=== PATIENT | female | born 1950 | race Caucasian/White ===

== ENCOUNTER 2017-04-07 10:29 | Outpatient (CLI) | payer MEDICARE ==
--- NOTE | 2017-04-07 17:45 | DEXA Report ---
DEXA SCAN: 04/07/2017 CLINICAL INDICATION: Postmenopausal, history of osteoporosis. TECHNIQUE: Dual energy x-ray absorptiometry (DXA) was performed on a [employer] system. Regions measured are the AP spine, femoral neck, and, if needed, forearm. COMPARISON: 05/03/2016. In accordance with the International Society for Clinical Densitometry (ISCD) guidelines, data from previous exams may be reanalyzed using current recommendations and techniques. This is done to allow a more accurate basis for comparison with the current study. FINDINGS LUMBAR SPINE DATA: REGION BMD (g/cm/cm) T-SCORE Z-SCORE L1 1.040 -0.8 -0.3 L2 0.892 -2.6 -2.1 L3 0.744 -3.8 -3.3 L4 0.913 -2.4 -1.9 TOTAL 0.894 -2.4 -1.9 NOTE: All evaluable vertebrae are used for classification. HIP DATA: REGION BMD (g/cm/cm) T-SCORE Z-SCORE Neck 0.702 -2.4 -1.6 TOTAL 0.779 -1.8 -1.3 NOTE: The femoral neck or total proximal femur, whichever is lowest, is used for classification. DXA RESULTS SUMMARY: Spine SCAN DATE AGE BMD T-SCORE BMD CHANGE VS BASELINE BMD CHANGE VS PREVIOUS 04/07/2017 67 0.894 -- 0.998 1.0 05/03/2016 66 0.885 00 -- -- * Denotes significant change at the 95% confidence level. Denotes dissimilar scan types or analysis methods. DXA RESULTS SUMMARY: Total Hip SCAN DATE AGE BMD T-SCORE BMD CHANGE VS BASELINE BMD CHANGE VS PREVIOUS 04/07/2017 67 0.779 -- -0.042* -5.1* 05/03/2016 66 0[age]821 -- -- -- * Denotes significant change at the 95% confidence level. Denotes dissimilar scan types or analysis methods. IMPRESSION 1. THE WHO CLASSIFICATION BASED ON THE INTERNATIONAL REFERENCE STANDARD IS OSTEOPENIA. FRACTURE RISK IS INCREASED. 2. THERE HAS BEEN STATISTICALLY SIGNIFICANT INTERVAL DECREASE IN BONE MINERAL DENSITY OF THE LEFT HIP FROM 05/03/2016. NO STATISTICALLY SIGNIFICANT INTERVAL CHANGE IN BONE MINERAL DENSITY OF THE LUMBAR SPINE. RECOMMENDATION: Patients with diagnosis of osteoporosis or osteopenia should have regular bone mineral density assessment. For those eligible for Medicare, routine testing is allowed once every 2 years. Testing frequency can be increased for patients who have rapidly progressing disease or for those who are receiving medical therapy to restore bone mass. COMMENT: World Health Organization (WHO) definitions for osteoporosis and osteopenia: NORMAL BMD: T-score at -1.0 or higher, fracture risk is low. OSTEOPENIA BMD: T-score between -1.0 and -2.5, fracture risk is increased. OSTEOPOROSIS BMD: T-score at -2.5 or lower, fracture risk high. National Osteoporosis Foundation recommends: 1. Obtain adequate dietary calcium (at least 1200 mg per day) and vitamin D (400 -800 international units per day). 2. Participate, as appropriate, in regular weightbearing and muscle- strengthening exercise. 3. Avoid tobacco use and reduce alcohol and caffeine intake. 4. For more detailed information see the website at www.NOF.org. MTDD
== END 2017-04-07 10:30 | disposition home or self-care (01) ==
LOC: DI 10:29
PROVIDERS: ATTEND Internal Medicine Endocrinology, Diabetes & Metabolism
DX: M85.89 Other specified disorders of bone density and structure, multiple sites (principal)
CPT/HCPCS: 77080

== ENCOUNTER 2017-05-31 09:12 | Outpatient (CLI) | payer MEDICARE ==
[2017-05-31] MEDS ORDERED: ALBUTEROL NEB 2.5 MG/3 ML INH ONE (11:00)
== END 2017-05-31 09:13 | disposition home or self-care (01) ==
LOC: RT 09:12
PROVIDERS: ATTEND Family Medicine
DX: J45.909 Unspecified asthma, uncomplicated (principal)
CPT/HCPCS: 94060; 94729; J7613

== ENCOUNTER 2018-04-25 11:11 | Outpatient (CLI) | payer MEDICARE ==
--- NOTE | 2018-04-26 08:33 | Mammography Report ---
Reason: SCREENING MAMMO Procedure Date: 04/25/2018 Accession Number: [id number] / [id number] Procedure: CINDY - Screening Mammo w/Armen CPT Code: FULL RESULT: EXAM: Screening Mammo w/Armen DATE: 04/25/2018 11:46 AM CLINICAL HISTORY: Screening. Family history breast cancer grandmother in her 80s. No reported personal history of breast cancer. TECHNIQUE: Bilateral CC and MLO views were obtained. COMPARISON: 05/03/2016 and 02/19/2015 FINDINGS: The breasts demonstrate scattered fibroglandular densities bilaterally. Bilateral breasts: There are no suspicious masses, calcifications or areas of distortion. IMPRESSION: Negative examination RECOMMENDATION: Routine annual screening unless otherwise clinically indicated. BI-RADS CATEGORY 1: Negative STANDARD QUALIFYING STATEMENTS: 1. This examination was not reviewed with the aid of Computer-Aided Detection (CAD). 2. A negative or benign imaging report should not preclude biopsy if clinically suspicious findings are present. 3. Dense breasts may obscure an underlying neoplasm. 4. This examination was reviewed with the aid of 3D breast imaging (tomosynthesis).
== END 2018-04-25 11:12 | disposition home or self-care (01) ==
LOC: DI 11:11
DX: Z12.31 Encounter for screening mammogram for malignant neoplasm of breast (principal); Z80.3 Family history of malignant neoplasm of breast
CPT/HCPCS: 77063; 77067

== ENCOUNTER 2018-10-30 15:19 | Outpatient (CLI) | payer MEDICARE ==
--- NOTE | 2018-11-01 14:03 | DEXA Report ---
Reason: AGE RELATED OSTEOPOROSIS WITHOUT CURRENT PATHOLOGI Procedure Date: 10/30/2018 Accession Number: [id number] / [id number] Procedure: DEX - Dexa Spine and/or Hip CPT Code: FULL RESULT: EXAM: Dexa Spine and/or Hip DATE: 10/30/2018 4:17 PM CLINICAL HISTORY: AGE RELATED OSTEOPOROSIS WITHOUT CURRENT PATHOLOGI TECHNIQUE: Dual energy x-ray absorptiometry (DXA) was performed on a [employer] System. Regions measured are the AP Spine, femoral neck, and if needed forearm. COMPARISON: 04/07/2017. In accordance with the International Society for Clinical Densitometry (ISCD) guidelines, data from previous exams may be reanalyzed using current recommendations and techniques. This is done to allow a more accurate basis for comparison with the current study. FINDINGS: The data for the lumbar spine is as follows: BMD (g/cm/cm) T-SCORE Z-SCORE REGION L1 0.973 -1.3 -0.8 L2 0.892 -2.6 -2.1 L3 0.757 -3.7 -3.2 L4 0.823 -3.1 -2.7 TOTAL 0.858 -2.7 -2.2 NOTE: All evaluable vertebrae are used for classification The data for the hip is as follows: BMD (g/cm/cm) T-SCORE Z-SCORE REGION Neck 0.680 -2.6 -1.7 TOTAL 0.751 -2.0 -1.4 NOTE: The femoral neck or total proximal femur, whichever is lowest, is used for classification. DXA RESULTS SUMMARY: Spine SCAN DATE AGE BMD CHANGE VS CHANGE VS PREVIOUS PREVIOUS % 10[age]30/2018 [age] 0.867 -0.027 -3.0 04[age]07/2017 [age] 0.89 0.009 1.0 05/03/2016 [age] 0.885 * Denotes significant change at the 95% confidence level. Denotes dissimilar scan types or analysis methods. DXA RESULTS SUMMARY: Hip SCAN DATE AGE BMD CHANGE VS CHANGE VS PREVIOUS PREVIOUS % 10[age]30/2018 [age] 0.751 -0.028 -3.6 04/07/2017 [age] 0.779 -0.042* -5.1* 05/03/2016 [age] 0.821 * Denotes significant change at the 95% confidence level. Denotes dissimilar scan types or analysis methods. IMPRESSION: THE WHO CLASSIFICATION BASED ON THE INTERNATIONAL REFERENCE STANDARD IS OSTEOPOROSIS. THE FRACTURE RISK IS HIGH. RECOMMENDATION: Patients with diagnosis of osteoporosis or osteopenia should have regular bone mineral density assessment. For those eligible for Medicare, routine testing is allowed once every 2 years. Testing frequency can be increased for patients who have rapidly progressing disease or for those who are receiving medical therapy to restore bone mass. COMMENT: World Health Organization (WHO) definitions for osteoporosis and osteopenia: NORMAL BMD: T-score at -1.0 or higher, fracture risk is low OSTEOPENIA BMD: T-score between -1.0 and -2.5, fracture risk is increased. OSTEOPOROSIS BMD: T-score at -2.5 or lower, fracture risk is high. National Osteoporosis Foundation recommends: 1. Obtain adequate dietary calcium (at least 1200 mg per day) and vitamin D (400-800 international units per day). 2. Participate, as appropriate, in regular weightbearing and muscle-strengthening exercise. 3. Avoid tobacco use and reduce alcohol and caffeine intake. 4. For more detailed information see the website at www.NOF.org.
== END 2018-10-30 15:20 | disposition home or self-care (01) ==
LOC: DI 15:19
PROVIDERS: ATTEND Internal Medicine Endocrinology, Diabetes & Metabolism
DX: M81.0 Age-related osteoporosis without current pathological fracture (principal)
CPT/HCPCS: 77080

== ENCOUNTER 2019-03-06 08:43 | Outpatient (CLI) | payer MEDICARE ==
[2019-03-06] MEDS ORDERED: REGADENOSON 0.4 MG/5 ML SYRINGE IVP ONE (10:04)
[2019-03-06] MEDS ORDERED: AMINOPHYLLINE 250 MG/10 ML VIAL ONE (10:05)
[2019-03-06] MEDS: REGADENOSON 0.4 MG/5 ML SYRINGE IVP ONE (11:11)
--- NOTE | 2019-03-06 15:28 | CARDIAC PROCEDURE NOTE ---
DATE OF SERVICE: 03/06/2019 Physician: Ana Cristina Moore MD, [facility] INDICATIONS: Shortness of breath, hypertension, dyslipidemia CARDIAC RISK FACTORS: Postmenopausal status, over weight, family history of heart disease, hypertension. DESCRIPTION OF PROCEDURE: After signing informed consent, the patient underwent a Lexiscan pharmaceutical stress test with nuclear myocardial perfusion imaging. RESTING HEART RATE: 65. PEAK HEART RATE: 79. RESTING BLOOD PRESSURE: 136/76. PEAK BLOOD PRESSURE: 162/71. The patient underwent Lexiscan infusion per protocol. She developed very brief shortness of breath. Oxygen saturation was 93-94% on room air during this time. She developed no chest pain. RESTING EKG: Normal sinus rhythm, left atrial enlargement, right bundle branch block, ST and T-wave abnormalities in leads II, III, aVF, and V1 through V4, and T-wave flattening in leads V5 and V6. EKG AT PEAK: New ST depression and new T-wave inversions in V5 and V6, other abnormalities remained the same. SUMMARY 1. Abnormal resting EKG. 2. Ischemic changes do develop during pharmaceutical stress. 3. This patient's cardiac risk based on EKG criteria: High. 4. Nuclear images reported separately. cc: DO Cornelio Grant MD TD: 03/06/2019 15:10 MTDD
--- NOTE | 2019-03-08 09:16 | Nuclear Medicine Report ---
Reason: SOB, HTN, DYSLIPIDEMIA Procedure Date: 03/06/2019 Accession Number: [id number] / [id number] Procedure: NM - Myocardial Perfusion STR/RST CPT Code: Final Report FULL RESULT: EXAM: SINGLE-ISOTOPE PHARMACOLOGICAL STRESS TEST WITH REGADENOSON. SINGLE-ISOTOPE AND ONE-DAY REST/STRESS MYOCARDIAL PERFUSION SCANS WITH TOMOGRAPHIC IMAGING, QUANTITATIVE ANALYSIS, WALL MOTION ANALYSIS AND CALCULATION OF EJECTION FRACTION. EXAM DATE: 03/06/2019 04:02 PM. CLINICAL HISTORY: Shortness of breath, hypertension, dyslipidemia. COMPARISON: None available. TECHNIQUE: After the intravenous administration of 10.4 mCi of Tc-99m sestamibi, a rest myocardial perfusion scan was done with tomography. Motion correction was applied when appropriate. After an appropriate delay, pharmacological stress was performed with the infusion of 0.4 mg regadenoson per protocol. According to protocol, 43.1 mCi of Tc-99m sestamibi was injected for stress myocardial perfusion scan. Motion correction was applied when appropriate. Gated tomographic images were obtained for wall motion analysis and computation of left ventricular ejection fraction. FINDINGS: No fixed or reversible perfusion defects are evident. Summed stress score 1 Summed rest score 0 Summed difference score 1 Wall motion analysis demonstrates No focal wall motion abnormality. The left ventricular end-diastolic volume is 69 cc. The left ventricular end-systolic volume is 8 cc. The left ventricular ejection fraction is calculated to be 88%. IMPRESSION: 1. No scintigraphic findings to indicate myocardial ischemia. Negative for infarct. 2. Left ventricular ejection fraction of 88%. 3. Normal segmental and global wall motion. 4. Normal left ventricular cavity size, no change with stress. 5. Based on computer analysis, normal study with no ischemia. Please correlate findings with stress ECG tracings and procedure notes. RADIA
== END 2019-03-06 08:44 | disposition home or self-care (01) ==
LOC: DI 08:43
PROVIDERS: ATTEND Family Medicine
DX: R06.02 Shortness of breath (principal); R94.31 Abnormal electrocardiogram [ECG] [EKG]; I10 Essential (primary) hypertension; E78.5 Hyperlipidemia, unspecified
CPT/HCPCS: 78452; 93017; A9500; J2785

== ENCOUNTER 2019-07-03 08:00 | Outpatient (CLI) | payer MEDICARE ==
[2019-07-03 18:33] LABS: BASOPHILS # (AUTO) 0.1 10^3/uL (0.0-0.1); BASOPHILS % (AUTO) 0.7 %; EOSINOPHILS # (AUTO) 0.2 10^3/uL (0.0-0.7); EOSINOPHILS % (AUTO) 2.4 %; HGB - HEMOGLOBIN 15.4 g/dL (12.0-16.0); LYMPHOCYTES # (AUTO) 3.1 10^3/uL (1.5-3.5); LYMPHOCYTES % (AUTO) 43.2 %; MEAN CORPUSCULAR HEMOGLOBIN 28.5 pg (27.0-31.0); MEAN CORPUSCULAR HGB CONC 30.9 g/dL (32.0-36.0); MEAN CORPUSCULAR VOLUME 92.4 fL (81.0-99.0); MONOCYTES # (AUTO) 0.6 10^3/uL (0.0-1.0); MONOCYTES % (AUTO) 8.2 %; NEUTROPHILS # (AUTO) 3.3 10^3/uL (1.5-6.6); NEUTROPHILS % (AUTO) 45.2 %; PLT - PLATELET COUNT 202 10^3/uL (130-450); RED CELL DISTRIBUTION WIDTH 14.6 % (12.0-15.0); WHITE BLOOD COUNT 7.2 x10^3/uL (4.8-10.8)
[2019-07-03 19:06] LABS: ALBUMIN/GLOBULIN RATIO 1.1 (1.0-2.2); BILIRUBIN,TOTAL 1.3 mg/dL (0.2-1.0); CREATININE 0.7 mg/dL (0.4-1.0); TOTAL PROTEIN 7.5 g/dL (6.7-8.2)
== END 2019-07-03 23:59 | disposition home or self-care (01) ==
LOC: LAB.WCP 08:00
PROVIDERS: ATTEND Family Medicine
DX: K92.1 Melena (principal)
CPT/HCPCS: 36415; 80053; 85025

== ENCOUNTER 2019-07-04 19:18 | Outpatient (CLI) | payer MEDICARE ==
--- NOTE | 2019-07-04 22:09 | Ultrasound Report ---
Reason: ABNORMAL LFTS Procedure Date: 07/04/2019 Accession Number: [id number] / [id number] Procedure: US - Abdomen Complete CPT Code: Final Report FULL RESULT: EXAM: ABDOMEN ULTRASOUND EXAM DATE: 07/04/2019 08:20 PM. CLINICAL HISTORY: ABNORMAL LFTS. COMPARISON: None. TECHNIQUE: Real-time scanning was performed with static images obtained. FINDINGS: Liver: Diffuse increased echogenicity of the liver. No mass lesions identified. 18.6 cm. Main portal vein flow: Hepatopetal. Gallbladder: Surgically absent. Biliary System: Common bile duct measures 7 mm. No intrahepatic or extrahepatic ductal dilatation. Pancreas: Not well visualized. Kidneys: Right: 11.7 cm longitudinally. Echogenic focus within the right kidney likely representing a nonobstructing stone measuring 7 x 8 mm. Simple cyst in the mid kidney measuring 1 x 0.8 cm. Left: 11.4 cm longitudinally. Simple cyst in the lower pole of the left kidney measuring 1.2 x 1.1 cm. Spleen: 11.1 x 4.7 x 9.8 cm. Normal in size and echotexture. Aorta and Inferior Vena Cava: Proximal abdominal aorta measures 2.8 cm. Mid and distal abdominal aorta not well visualized. Other: There are possible two cystic lesions in the region of the distal aorta measuring 4.2 x 3.7 cm and 4.3 x 6 cm. These lesions are poorly defined due to large amount of bowel gas and are of unclear etiology. IMPRESSION: 1. No acute finding sonographically. 2. Diffuse increased echogenicity of the liver likely due to hepatic steatosis. 3. Surgically absent gallbladder. 4. Possible two cystic lesions in the region of the distal aorta measuring 4.2 x 3.7 cm and 4.3 x 6 cm. These lesions are poorly defined due to large amount of bowel gas and are of unclear etiology. Recommend further evaluation with a dedicated CT scan of the abdomen/pelvis. RADIA The call report notification system was initiated by Dr. Roberto Yousif at 10:05 PM on 07/04/2019. The above call report findings were discussed with Dr Lashaun Melgoza by Dr. Roberto Yousif at 10:08 PM on 07/04/2019.
== END 2019-07-04 19:19 | disposition home or self-care (01) ==
LOC: DI 19:18
PROVIDERS: ATTEND Family Medicine
DX: R94.5 Abnormal results of liver function studies (principal); Z90.49 Acquired absence of other specified parts of digestive tract
CPT/HCPCS: 76700

== ENCOUNTER 2019-07-05 09:54 | Outpatient (CLI) | payer MEDICARE ==
[2019-07-05] MEDS ORDERED: IOVERSOL 320 100 ML VIAL IVP ONE ×2 (10:02→11:38)
[2019-07-05] MEDS ORDERED: IOVERSOL 320 50 ML VIAL ONE (10:02)
[2019-07-05] MEDS ORDERED: IOVERSOL 320 50 ML VIAL PO ONE (11:38)
--- NOTE | 2019-07-05 14:09 | CT Report ---
Reason: ABD MASS Procedure Date: 07/05/2019 Accession Number: [id number] / [id number] Procedure: CT - Abdomen/Pelvis W CPT Code: Final Report FULL RESULT: EXAM: CT ABDOMEN AND PELVIS WITH IV CONTRAST EXAM DATE: 07/05/2019 11:29 AM. CLINICAL HISTORY: Abdominal mass. COMPARISONS: US abdomen complete 07/04/2019 7:40 PM. TECHNIQUE: Routine helical CT imaging was performed through the abdomen and pelvis. IV contrast: 90 mL Optiray 320. Enteric contrast: Yes. Reconstructions: Coronal and sagittal. In accordance with CT protocol optimization, one or more of the following dose reduction techniques were utilized for this exam: automated exposure control, adjustment of mA and/or KV based on patient size, or use of iterative reconstructive technique. FINDINGS: Lung Bases: Unremarkable. Liver: Mild diffuse decreased attenuation compatible with fatty infiltration. No focal liver lesion evident. Gallbladder/Bile Ducts: Prior cholecystectomy. No biliary ductal dilatation. Spleen: Normal. Pancreas: Normal. Adrenal Glands: Normal. Kidneys: Normal. No masses or hydronephrosis. Peritoneal Cavity/Bowel: Colonic diverticulosis without evidence for diverticulitis. Appendix not identified. No bulky abdominal or pelvic adenopathy. Pelvic Organs: Prior hysterectomy. Right ovary measures 3.2 x 2.0 x 3.3 cm, 11 cc and contains a 2.4 cm cyst that appears simple by CT. Complex cystic and solid bilobed left adnexal mass measuring up to 10 cm on series 3 image 64. The left anterior component measures 5.6 x 4.2 x 4.3 cm, 53 cc and the right lateral component of this lesion measures 5.8 x 4.7 x 4.9 cm, 70 cc; for overall volume of 123 cc. Vasculature: No aneurysms or other significant abnormality. 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 Lower lumbar spine degenerative changes with prominent facet hypertrophy and partial ankylosis. Prior lumbar laminectomy. Other: None. IMPRESSION: 1. Prior hysterectomy. 2. Abnormal 10 cm complex bilobed left adnexal cystic and solid mass. Estimated lesion volume is 123 cc. Findings are worrisome for ovarian neoplasm. 3. A 2.4 cm right ovarian cyst with simple appearance by CT. 4. Colonic diverticulosis. 5. Fatty liver. RADIA The call report notification system was initiated by Dr. Cornelio Au at 02:00 PM on 07/05/2019. The above call report findings were discussed with Dr. Melgoza by Dr. Cornelio Au at 02:05 PM on 07/05/2019.
== END 2019-07-05 09:55 | disposition home or self-care (01) ==
LOC: DI 09:54
PROVIDERS: ATTEND Family Medicine
DX: N94.89 Other specified conditions associated with female genital organs and menstrual cycle (principal); N83.201 Unspecified ovarian cyst, right side; K76.0 Fatty (change of) liver, not elsewhere classified; Z90.710 Acquired absence of both cervix and uterus
CPT/HCPCS: 74177; Q9967

== ENCOUNTER 2019-07-10 12:57 | Outpatient (CLI) | payer MEDICARE ==
[2019-07-10 19:22] LABS: ALBUMIN 3.9 g/dL (3.2-5.5); ALBUMIN/GLOBULIN RATIO 1.1 (1.0-2.2); BILIRUBIN,TOTAL 0.7 mg/dL (0.2-1.0); CALCIUM 10.1 mg/dL (8.5-10.3); CREATININE 0.7 mg/dL (0.4-1.0); TOTAL PROTEIN 7.4 g/dL (6.7-8.2)
[2019-07-11 12:15] LABS: HEPATITIS B SURFACE ANTIGEN NON-REACTIVE (NON-REACTIVE); HEPATITIS C ANTIBODY NON-REACTIVE (NON-REACTIVE)
[2019-07-13 00:45] LABS: LIVER KIDNEY MICROSOME AB <20.0 U
== END 2019-07-10 23:59 | disposition home or self-care (01) ==
LOC: LAB.WCP 12:57
PROVIDERS: ATTEND Family Medicine
DX: R94.5 Abnormal results of liver function studies (principal); N83.9 Noninflammatory disorder of ovary, fallopian tube and broad ligament, unspecified
CPT/HCPCS: 36415; 80053; 82105; 82390; 83540; 84466; 86304; 86317; 86376; 86704; 86709; 86803; 87340

== ENCOUNTER 2019-10-23 08:00 | Outpatient (CLI) | payer MEDICARE ==
[2019-10-23 18:58] LABS: ALBUMIN 4.1 g/dL (3.2-5.5); ALBUMIN/GLOBULIN RATIO 1.8 (1.0-2.2); BILIRUBIN,TOTAL 0.8 mg/dL (0.2-1.0); CALCIUM 9.9 mg/dL (8.5-10.3); CREATININE 0.6 mg/dL (0.4-1.0); TOTAL PROTEIN 6.4 g/dL (6.7-8.2)
[2019-10-23 19:01] LABS: BASOPHILS # (AUTO) 0.1 10^3/uL (0.0-0.1); BASOPHILS % (AUTO) 0.8 %; EOSINOPHILS # (AUTO) 0.2 10^3/uL (0.0-0.7); EOSINOPHILS % (AUTO) 2.1 %; HGB - HEMOGLOBIN 15.6 g/dL (12.0-16.0); LYMPHOCYTES # (AUTO) 4.2 10^3/uL (1.5-3.5); LYMPHOCYTES % (AUTO) 44.8 %; MEAN CORPUSCULAR HEMOGLOBIN 30.9 pg (27.0-31.0); MEAN CORPUSCULAR HGB CONC 33.3 g/dL (32.0-36.0); MEAN CORPUSCULAR VOLUME 92.9 fL (81.0-99.0); MEAN PLATELET VOLUME 10.8 fL (7.9-10.8); MONOCYTES # (AUTO) 0.8 10^3/uL (0.0-1.0); MONOCYTES % (AUTO) 8.9 %; NEUTROPHILS # (AUTO) 4.1 10^3/uL (1.5-6.6); NEUTROPHILS % (AUTO) 43.1 %; PLT - PLATELET COUNT 261 10^3/uL (130-450); RED BLOOD COUNT 5.05 10^6/uL (4.20-5.40); RED CELL DISTRIBUTION WIDTH 13.4 % (12.0-15.0); WHITE BLOOD COUNT 9.5 x10^3/uL (4.8-10.8)
== END 2019-10-23 23:59 | disposition home or self-care (01) ==
LOC: LAB.WCP 08:00
PROVIDERS: ATTEND Family Medicine
DX: R94.5 Abnormal results of liver function studies (principal)
CPT/HCPCS: 36415; 80053; 85025

== ENCOUNTER 2020-01-02 07:00 | Outpatient (CLI) | payer MEDICARE ==
[2020-01-02 18:04] LABS: BASOPHILS # (AUTO) 0.1 10^3/uL (0.0-0.1); BASOPHILS % (AUTO) 0.8 %; EOSINOPHILS # (AUTO) 0.2 10^3/uL (0.0-0.7); EOSINOPHILS % (AUTO) 2.2 %; HGB - HEMOGLOBIN 14.4 g/dL (12.0-16.0); LYMPHOCYTES # (AUTO) 4.3 10^3/uL (1.5-3.5); LYMPHOCYTES % (AUTO) 46.4 %; MEAN CORPUSCULAR HEMOGLOBIN 29.5 pg (27.0-31.0); MEAN CORPUSCULAR HGB CONC 31.5 g/dL (32.0-36.0); MEAN CORPUSCULAR VOLUME 93.6 fL (81.0-99.0); MEAN PLATELET VOLUME 10.7 fL (7.9-10.8); MONOCYTES # (AUTO) 0.5 10^3/uL (0.0-1.0); MONOCYTES % (AUTO) 4.9 %; NEUTROPHILS # (AUTO) 4.2 10^3/uL (1.5-6.6); NEUTROPHILS % (AUTO) 45.2 %; PLT - PLATELET COUNT 346 10^3/uL (130-450); RED BLOOD COUNT 4.88 10^6/uL (4.20-5.40); RED CELL DISTRIBUTION WIDTH 13.9 % (12.0-15.0); WHITE BLOOD COUNT 9.3 x10^3/uL (4.8-10.8)
[2020-01-02 18:22] LABS: ALBUMIN 3.6 g/dL (3.2-5.5); CALCIUM 10.3 mg/dL (8.5-10.3); CREATININE 0.8 mg/dL (0.4-1.0); TOTAL PROTEIN 7.2 g/dL (6.7-8.2)
== END 2020-01-02 23:59 | disposition home or self-care (01) ==
LOC: LAB.WCP 07:00
PROVIDERS: ATTEND Physician Assistant Medical
DX: K80.50 Calculus of bile duct without cholangitis or cholecystitis without obstruction (principal)
CPT/HCPCS: 36415; 80053; 85025

== ENCOUNTER 2020-04-07 15:18 | Outpatient (CLI) | payer MEDICARE ==
--- NOTE | 2020-04-07 17:04 | DEXA Report ---
PROCEDURE: Dexa Spine and/or Hip INDICATIONS: BONE DISORDER TECHNIQUE: Dual energy x-ray absorptiometry (DXA) was performed on a [id number] System. Regions measur ed are the AP Spine, femoral neck, and if needed forearm. COMPARISON: None. FINDINGS: Lumbar Spine: Bone Mineral Density 0.866 g/cm/cm,T score -2.6 Left Hip: Bone Mineral Density 0.728 g/cm/cm,T score -1.5 Left Femoral Neck: Bone Mineral Density 0.660 g/cm/cm, T score -1.7 (T score greater or equal to -1.0: NORMAL) (T score from -1.1 to -2.4: OSTEOPENIA) (T score less than or equal to -2.5 to: OSTEOPOROSIS) Impression: 1. Osteoporosis of the lumbar spine. 2. Osteopenia of the left hip. Patients with diagnosis of osteoporosis or osteopenia should have regular bone mineral density assess ment. For those eligible for Medicare, routine testing is allowed once every 2 years. Testing frequ ency can be increased for patients who have rapidly progressing disease or for those who are receivin g medical therapy to restore bone mass. Reviewed by: Mercedes Sun MD on 04/07/2020 5:02 PM PST Approved by: Mercedes Sun MD on 04/07/2020 5:02 PM PST Station ID: [id number]
== END 2020-04-07 15:19 | disposition home or self-care (01) ==
LOC: DI 15:18
PROVIDERS: ATTEND Family Medicine
DX: M81.0 Age-related osteoporosis without current pathological fracture (principal)

== ENCOUNTER 2020-04-08 10:20 | Outpatient (CLI) | payer MEDICARE ==
--- NOTE | 2020-04-09 07:43 | Mammography Report ---
BILATERAL DIGITAL SCREENING MAMMOGRAM 3D/2D: 04/08/2020 CLINICAL: Routine screening. Comparison is made to exams dated: 04/25/2018 mammogram, 05/03/2016 mammogram, 02/19/2015 mammogram - [facility], 08/20/2012 mammogram, and 02/10/2010 mammogram - [facility]. There are scattered fibroglandular elements in both breasts. No significant masses, calcifications, or other findings are seen in either breast. There has been no significant interval change. IMPRESSION: NEGATIVE There is no mammographic evidence of malignancy. A 1 year screening mammogram is recommended. This exam was interpreted at Station ID: [id number]. NOTE: For mammograms, a report in lay terms will be sent to the patient. Approximately 15% of breast malignancies will not be visualized mammographically. In the management of a palpable breast mass, a negative mammogram must not discourage biopsy of a clinically suspicious lesion. Electronically Signed By: Ryan chaves/kong:04/08/2020 11:29:52 ACR BI-RADS Category 1: Negative 3341F PARENCHYMAL PATTERN: (A) - The breast(s) demonstrate(s) scattered fibroglandular densities. BI-RADS CATEGORY: (1) - 1 RECOMMENDATION: (ANNUAL) - Recommend routine annual screening mammography. [id number] 1 year screening LATERALITY: (B)
== END 2020-04-08 10:21 | disposition home or self-care (01) ==
LOC: DI.N 10:20
DX: Z12.31 Encounter for screening mammogram for malignant neoplasm of breast (principal)

== ENCOUNTER 2020-08-07 08:00 | Outpatient (CLI) | payer MEDICARE ==
[2020-08-07 12:52] LABS: ESTIMATED AVERAGE GLUCOSE 114 mg/dL (70-100); HEMOGLOBIN A1c% 5.6 % (4.27-6.07)
[2020-08-07 13:23] LABS: BASOPHILS # (AUTO) 0.1 10^3/uL (0.0-0.1); BASOPHILS % (AUTO) 0.9 %; EOSINOPHILS # (AUTO) 0.2 10^3/uL (0.0-0.7); HCT - HEMATOCRIT 48.2 % (37.0-47.0); HGB - HEMOGLOBIN 15.9 g/dL (12.0-16.0); LYMPHOCYTES # (AUTO) 4.4 10^3/uL (1.5-3.5); LYMPHOCYTES % (AUTO) 49.3 %; MEAN CORPUSCULAR HEMOGLOBIN 29.6 pg (27.0-31.0); MEAN CORPUSCULAR VOLUME 89.6 fL (81.0-99.0); MEAN PLATELET VOLUME 11.6 fL (7.9-10.8); MONOCYTES # (AUTO) 0.7 10^3/uL (0.0-1.0); MONOCYTES % (AUTO) 7.3 %; NEUTROPHILS # (AUTO) 3.6 10^3/uL (1.5-6.6); NEUTROPHILS % (AUTO) 40.3 %; PLT - PLATELET COUNT 186 10^3/uL (130-450); RED BLOOD COUNT 5.38 10^6/uL (4.20-5.40); RED CELL DISTRIBUTION WIDTH 13.4 % (12.0-15.0); WHITE BLOOD COUNT 8.9 x10^3/uL (4.8-10.8)
[2020-08-07 13:49] LABS: ALBUMIN/GLOBULIN RATIO 1.3 (1.0-2.2); ALKALINE PHOSPHATASE 74 IU/L (42-121); ALT ALANINE AMINOTRANSFERASE 27 IU/L (10-60); AST ASPARTATE AMINOTRANSFERASE 23 IU/L (10-42); BILIRUBIN,TOTAL 1.2 mg/dL (0.2-1.0); BUN - BLOOD UREA NITROGEN 22 mg/dL (6-20); CALCIUM 9.9 mg/dL (8.5-10.3); CARBON DIOXIDE - CO2 24 mmol/L (21-32); CHLORIDE 108 mmol/L (101-111); CHOL/HDL RATIO 3.6 (<4.4); CHOLESTEROL 153 mg/dL; CREATININE 0.7 mg/dL (0.4-1.0); GFR - MDRD 82 (>89); GLUCOSE 118 mg/dL (70-100); HDL CHOLESTEROL 43 mg/dL; LDL CHOLESTEROL,CALCULATED 83 mg/dL; LDL/HDL RATIO 1.9 (<4.4); POTASSIUM 4.3 mmol/L (3.5-5.0); SODIUM 141 mmol/L (135-145); TRIGLYCERIDES 136 mg/dL; VLDL CHOLESTEROL 27 mg/dL
[2020-08-07 13:54] LABS: THYROID STIMULATING HORMONE 1.68 uIU/mL (0.34-5.60)
== END 2020-08-07 23:59 | disposition home or self-care (01) ==
LOC: LAB.WCP 08:00
PROVIDERS: ATTEND Family Medicine
DX: I10 Essential (primary) hypertension (principal); E78.5 Hyperlipidemia, unspecified; E66.01 Morbid (severe) obesity due to excess calories
CPT/HCPCS: 36415; 80053; 80061; 83036; 83721; 84443; 85025

== ENCOUNTER 2020-09-07 08:00 | Outpatient (CLI) | payer MEDICARE ==
--- NOTE | 2020-09-07 12:44 | XRAY Report ---
PROCEDURE: Shoulder 2 View RT INDICATIONS: STRAIN OF MUSCLE, FASCIA AND TENDON OF R SHOULDER TECHNIQUE: 2 views of the shoulder were acquired. COMPARISON: None. FINDINGS: Bones: No fractures or dislocations. No suspicious bony lesions. Visualized ribs appear intact. Soft tissues: No suspicious soft tissue calcifications but there is a set of 2 adjacent calcificatio ns at the lateral border of the humeral head articular surface, consistent with calcific bursitis or tendinitis. Mild to moderate AC joint osteoarthritis.. IMPRESSION: Osteoarthritic change and calcific bursitis/tendinitis noted at the lateral humeral head margin. Reviewed by: Ambrose Teixeira MD on 09/07/2020 12:43 PM PDT Approved by: Ambrose Teixeira MD on 09/07/2020 12:43 PM PDT Station ID: [id number]
== END 2020-09-07 23:59 | disposition home or self-care (01) ==
LOC: DI.N 08:00
PROVIDERS: ATTEND Nurse Practitioner
DX: M75.31 Calcific tendinitis of right shoulder (principal); M75.51 Bursitis of right shoulder

== ENCOUNTER 2020-10-02 08:48 | Day surgery (SDC) | payer MEDICARE ==
[2020-10-02] MEDS ORDERED: LACTATED RINGERS 1,000 ML IV ONE ×2 (08:54→10:39)
--- NOTE | 2020-10-02 09:27 | HISTORY & PHYSICAL EXAMINATION ---
Chief Complaint - Chief Complaint Chief Complaint: history colon polyp History of Present Illness - History Obtained From Records Reviewed: yes History obtained from: pt Exam Limitations: none - History of Present Illness HPI Comment/Other: She had a colonoscopy 5 years ago and an adenoma was removed History - Past Medical History Cardiovascular: reports: Hypertension Respiratory: reports: Asthma Endocrine/Autoimmune: reports: None GI: reports: GERD, Colon polyps, Other : reports: Incontinence HEENT: reports: Chronic vision loss, Other Psych: reports: Depression, Anxiety, Panic attacks Musculoskeletal: reports: Osteoarthritis Derm: reports: None MRSA Hx?: No - Past Surgical History General: reports: Cholecystectomy, Colonoscopy, Other Ortho: reports: Arthroscopic surgery, Spine surgery /SPEECH PATHOLOGIST: reports: Hysterectomy Meds/Allgy - Home Medications Home Medications: Ambulatory Orders Medication Instructions Recorded Confirmed Ascorbic Acid/Bioflavonoids [Vit 1 each PO DAILY 05/13/15 10/02/20 C-Bioflavonoids Tab SA] Calcium Carbonate [Calcium] 333 mg PO DAILY 05/13/15 10/02/20 Multivit-Min/FA/Lycopen/Lutein 1 cap PO DAILY 05/13/15 10/02/20 [Centrum Silver Tablet] Potassium 99 mg PO DAILY 05/13/15 10/02/20 - Allergies Allergies/Adverse Reactions: Allergies Allergy/AdvReac Type Severity Reaction Status Date / Time No Known Drug Allergies Allergy Verified 05/13/15 14:33 Review of Systems - Other Findings Other Findings: 10 pt ros as above otherwise unremarkable Exam - Vital Signs Reviewed Vital Signs: Yes Vital Signs: Vital Signs x48h Temp Pulse Resp BP Pulse Ox 10/02/20 08:55 36.2 C L 64 14 150/63 H 96 - Physical Exam General Appearance: positive: Alert Eyes Bilateral: positive: PERRL, EOMI ENT: positive: No signs of dehydration Neck: positive: No JVD Respiratory: positive: Breath sounds nml Cardiovascular: positive: Regular rate & rhythm Abdomen: positive: Non-tender, No distention Neurologic/Psychiatric: positive: Oriented x3 Conclusion/Plan - Problem List (1) History of adenomatous polyp of colon Conclusion/Plan: plan colonoscopy. parq held and consent obtained
[2020-10-02] MEDS ORDERED: MIDAZOLAM 2 MG/2 ML VIAL ONE ×4 (09:28→10:10)
[2020-10-02] MEDS ORDERED: fentaNYL 250 MCG/5 ML VIAL ONE (09:28)
[2020-10-02 11:00] VITALS: BP 141/80
== END 2020-10-02 08:49 | disposition home or self-care (01) ==
LOC: SDS 08:48
PROVIDERS: ATTEND Surgery
DX: Z12.11 Encounter for screening for malignant neoplasm of colon (principal); K57.30 Diverticulosis of large intestine without perforation or abscess without bleeding; Z86.010 Personal history of colon polyps
CPT/HCPCS: G0105; J3010; J7120

== ENCOUNTER 2020-12-29 11:23 | Outpatient (CLI) | payer MEDICARE ==
--- NOTE | 2020-12-29 16:27 | XRAY Report ---
PROCEDURE: Knee 3 View RT INDICATIONS: R KNEE PX TECHNIQUE: 3 views of the right knee(s) were acquired. COMPARISON: None. FINDINGS: Bones: No fractures or dislocations. No suspicious bony lesions. Lateral patellar subluxation is p resent. There is moderate to severe medial, mild to moderate lateral and patellofemoral compartment n arrowing. No erosions. Soft tissues: No joint effusion. No suspicious soft tissue calcifications. IMPRESSION: Tricompartmental arthritic change most severe medially. Reviewed by: Angelica Jean Baptiste MD on 12/29/2020 4:26 PM PDT Approved by: Angelica Jean Baptiste MD on 12/29/2020 4:26 PM PDT Station ID: [id number]
== END 2020-12-29 23:59 | disposition home or self-care (01) ==
LOC: DI.N 11:23
PROVIDERS: ATTEND Family Medicine
DX: M17.11 Unilateral primary osteoarthritis, right knee (principal)

== ENCOUNTER 2021-06-02 10:43 | Outpatient (CLI) | payer MEDICARE ==
--- NOTE | 2021-06-03 06:32 | Mammography Report ---
BILATERAL DIGITAL SCREENING MAMMOGRAM 3D/2D: 06/02/2021 CLINICAL: Routine screening. Comparison is made to exams dated: 04/08/2020 mammogram, 04/25/2018 mammogram, 05/03/2016 mammogram, 02/19/2015 mammogram - [facility], 08/20/2012 mammogram, and 02/10/2010 mammogram - [facility]. There are scattered fibroglandular elements in both breasts. No significant masses, calcifications, or other findings are seen in either breast. There has been no significant interval change. IMPRESSION: NEGATIVE There is no mammographic evidence of malignancy. A 1 year screening mammogram is recommended. This exam was interpreted at Station ID: [id number]. NOTE: For mammograms, a report in lay terms will be sent to the patient. Approximately 15% of breast malignancies will not be visualized mammographically. In the management of a palpable breast mass, a negative mammogram must not discourage biopsy of a clinically suspicious lesion. Electronically Signed By: Ryan Garcia M.D. ddp/penrad:06/02/2021 12:12:03 ACR BI-RADS Category 1: Negative 3341F PARENCHYMAL PATTERN: (A) - The breast(s) demonstrate(s) scattered fibroglandular densities. BI-RADS CATEGORY: (1) - 1 RECOMMENDATION: (ANNUAL) - Recommend routine annual screening mammography. [id number] 1 year screening LATERALITY: (B)
== END 2021-06-02 10:44 | disposition home or self-care (01) ==
LOC: DI.N 10:43
DX: Z12.31 Encounter for screening mammogram for malignant neoplasm of breast (principal)

== ENCOUNTER 2021-07-07 10:33 | Outpatient (CLI) | payer MEDICARE ==
[2021-07-07 18:04] LABS: BASOPHILS # (AUTO) 0.1 10^3/uL (0.0-0.1); BASOPHILS % (AUTO) 0.7 %; EOSINOPHILS # (AUTO) 0.2 10^3/uL (0.0-0.7); EOSINOPHILS % (AUTO) 1.6 %; HCT - HEMATOCRIT 48.3 % (37.0-47.0); LYMPHOCYTES % (AUTO) 41.2 %; MEAN CORPUSCULAR HEMOGLOBIN 30.2 pg (27.0-31.0); MEAN CORPUSCULAR HGB CONC 33.1 g/dL (32.0-36.0); MEAN CORPUSCULAR VOLUME 91.3 fL (81.0-99.0); MEAN PLATELET VOLUME 11.9 fL (7.9-10.8); MONOCYTES # (AUTO) 0.6 10^3/uL (0.0-1.0); MONOCYTES % (AUTO) 6.6 %; NEUTROPHILS # (AUTO) 4.8 10^3/uL (1.5-6.6); NEUTROPHILS % (AUTO) 49.6 %; PLT - PLATELET COUNT 197 10^3/uL (130-450); RED BLOOD COUNT 5.29 10^6/uL (4.20-5.40); RED CELL DISTRIBUTION WIDTH 13.6 % (12.0-15.0); WHITE BLOOD COUNT 9.7 x10^3/uL (4.8-10.8)
[2021-07-07 18:24] LABS: ALBUMIN 4.3 g/dL (3.2-5.5); ALBUMIN/GLOBULIN RATIO 1.4 (1.0-2.2); ALKALINE PHOSPHATASE 63 IU/L (42-121); ALT ALANINE AMINOTRANSFERASE 27 IU/L (10-60); AST ASPARTATE AMINOTRANSFERASE 22 IU/L (10-42); BILIRUBIN,TOTAL 0.8 mg/dL (0.2-1.0); BUN - BLOOD UREA NITROGEN 25 mg/dL (6-20); CALCIUM 10.1 mg/dL (8.5-10.3); CARBON DIOXIDE - CO2 27 mmol/L (21-32); CHLORIDE 105 mmol/L (101-111); CHOL/HDL RATIO 3.4 (<4.4); CHOLESTEROL 154 mg/dL; CREATININE 0.8 mg/dL (0.4-1.0); GFR - MDRD 71 (>89); GLUCOSE 116 mg/dL (70-100); HDL CHOLESTEROL 45 mg/dL; LDL CHOLESTEROL,CALCULATED 91 mg/dL; POTASSIUM 4.9 mmol/L (3.5-5.0); SODIUM 141 mmol/L (135-145); TOTAL PROTEIN 7.3 g/dL (6.7-8.2); TRIGLYCERIDES 92 mg/dL; VLDL CHOLESTEROL 18 mg/dL
[2021-07-07 20:58] LABS: ESTIMATED AVERAGE GLUCOSE 117 mg/dL (70-100); HEMOGLOBIN A1c% 5.7 % (4.27-6.07)
== END 2021-07-07 10:34 | disposition home or self-care (01) ==
LOC: LAB.N 10:33
PROVIDERS: ATTEND Family Medicine
DX: E78.5 Hyperlipidemia, unspecified (principal); R73.01 Impaired fasting glucose; I10 Essential (primary) hypertension
CPT/HCPCS: 36415; 80053; 80061; 83036; 83721; 85025

== ENCOUNTER 2021-09-27 11:51 | Outpatient (CLI) | payer MEDICARE ==
--- NOTE | 2021-09-27 12:24 | XRAY Report ---
PROCEDURE: Knee 3 View LT INDICATIONS: L KNEE PX TECHNIQUE: 3 views of the left knee(s) were acquired. COMPARISON: None. FINDINGS: Bones: No fractures or dislocations. No suspicious bony lesions. Mild osteophytic degenerative rubin ges noted in all 3 compartments of the left knee. Soft tissues: No joint effusion. No suspicious soft tissue calcifications. IMPRESSION: Mild left knee tricompartmental osteoarthritis. Reviewed by: Rosa Bullard MD, PhD on 09/27/2021 12:23 PM PDT Approved by: Rosa Bullard MD, PhD on 09/27/2021 12:23 PM PDT Station ID: [id number]
== END 2021-09-27 11:52 | disposition home or self-care (01) ==
LOC: LAB.N 11:51 → DI.N 11:52
PROVIDERS: ATTEND Physician Assistant
DX: M17.12 Unilateral primary osteoarthritis, left knee (principal)

== ENCOUNTER 2021-11-22 08:00 | Outpatient (CLI) | payer MEDICARE ==
--- NOTE | 2021-11-22 15:45 | XRAY Report ---
PROCEDURE: Knee 4 View RT INDICATIONS: RIGHT KNEE PAIN POST FALL THIS WEEKEND TECHNIQUE: 4 views of the right knee and one view of the left were acquired. COMPARISON: Right knee radiographs 10/21/2021. FINDINGS: Bones: No acute fractures or dislocations. No suspicious bony lesions. There is moderate to severe joint space narrowing at the right medial femorotibial compartment. The lateral and anterior compart ment joint spaces are maintained. Moderate narrowing of the left medial femorotibial compartment is a lso seen. Soft tissues: Small joint effusion. No suspicious soft tissue calcifications. Nonspecific soft tiss ue edema is seen surrounding the knee IMPRESSION: 1.No acute osseous abnormality. If there is clinical concern or persistent symptoms, additional imagi ng such as repeat radiographs or advanced imaging (e.g. CT, MRI) may be helpful for further evaluatio n. 2.Moderate to severe right medial femorotibial compartment osteoarthrosis. Reviewed by: Boris Toney MD on 11/22/2021 3:43 PM PDT Approved by: Boris Toney MD on 11/22/2021 3:43 PM PDT Station ID: [id number]
== END 2021-11-22 23:59 | disposition home or self-care (01) ==
LOC: DI.WOS 08:00
PROVIDERS: ATTEND Physician Assistant
DX: M17.11 Unilateral primary osteoarthritis, right knee (principal)

== ENCOUNTER 2021-12-02 14:15 | Outpatient (CLI) | payer MEDICARE ==
--- NOTE | 2021-12-02 15:09 | DEXA Report ---
PROCEDURE: Dexa Spine and/or Hip INDICATIONS: OSTEOPOROSIS TECHNIQUE: Dual energy x-ray absorptiometry (DXA) was performed on a [employer] System. Regions measur ed are the AP Spine, femoral neck, and if needed forearm. COMPARISON: None. FINDINGS: Lumbar Spine: Bone Mineral Density 0.83 g/cm/cm,T score -2.9, osteoporosis Left Hip: Bone Mineral Density 0.8 g/cm/cm,T score -1.9, osteopenia. Impression: 1. Lumbar spine osteoporosis. 2. Left hip osteopenia. Patients with diagnosis of osteoporosis or osteopenia should have regular bone mineral density assess ment. For those eligible for Medicare, routine testing is allowed once every 2 years. Testing frequ ency can be increased for patients who have rapidly progressing disease or for those who are receivin g medical therapy to restore bone mass. Reviewed by: Leonarda Ontiveros MD on 12/02/2021 3:07 PM PDT Approved by: Leonarda Ontiveros MD on 12/02/2021 3:07 PM PDT Station ID: [id number]
== END 2021-12-02 14:16 | disposition home or self-care (01) ==
LOC: DI 14:15
PROVIDERS: ATTEND Physician Assistant
DX: M81.0 Age-related osteoporosis without current pathological fracture (principal)

== ENCOUNTER 2022-01-28 12:57 | Outpatient (CLI) | payer MEDICARE ==
--- NOTE | 2022-01-28 14:48 | XRAY Report ---
PROCEDURE: Hand 3 View BILAT INDICATIONS: BILATERAL HAND PAIN TECHNIQUE: 3 views of the hand(s) acquired. COMPARISON: None FINDINGS: Bones: Distal interphalangeal joint space narrowing noted involving the second through fifth DIP join ts bilaterally with small marginal osteophytes present without erosions. First carpometacarpal joint space narrowing with subchondral sclerosis is noted also bilaterally. Normal bone mineralization. Soft tissues: No suspicious soft tissue calcifications. IMPRESSION: 1. Bilateral polyarticular osteoarthritis Reviewed by: Regino Seals MD on 01/28/2022 1:47 PM AKDT Approved by: Regino Seals MD on 01/28/2022 1:47 PM AKDT Station ID: [id number]
== END 2022-01-28 12:58 | disposition home or self-care (01) ==
LOC: DI 12:57
PROVIDERS: ATTEND Internal Medicine
DX: M19.042 Primary osteoarthritis, left hand (principal); M19.041 Primary osteoarthritis, right hand

== ENCOUNTER 2022-03-07 11:47 | Outpatient (CLI) | payer MEDICARE ==
--- NOTE | 2022-03-07 15:51 | XRAY Report ---
PROCEDURE: Shoulder 2 View RT INDICATIONS: R SHOULDER PX TECHNIQUE: 2 views of the shoulder were acquired. COMPARISON: X-ray right shoulder, 09/07/2020. FINDINGS: Bones: No fractures or dislocations. No suspicious bony lesions. [id number] acromioclavicula r and glenohumeral joint degeneration. Visualized ribs appear intact. Soft tissues: There are calcific densities over the humeral head, most likely secondary to rotator cu ff calcific tendinitis. IMPRESSION: 1. Mild-to moderate degenerative joint disease. 2. Suspect calcific tendinitis of rotator cuff tendons. Reviewed by: Marry Schuler MD on 03/07/2022 3:50 PM PDT Approved by: Marry Schuler MD on 03/07/2022 3:50 PM PDT Station ID: [id number]
== END 2022-03-07 11:48 | disposition home or self-care (01) ==
LOC: DI.N 11:47
PROVIDERS: ATTEND Student in an Organized Health Care Education/Training Program
DX: M19.011 Primary osteoarthritis, right shoulder (principal)

== ENCOUNTER 2022-05-17 15:21 | Outpatient (CLI) | payer MEDICARE ==
--- NOTE | 2022-05-17 17:10 | XRAY Report ---
PROCEDURE: Knee 4 View BILAT INDICATIONS: BILAT KNEE PAIN TECHNIQUE: 4 views of the bilateral knee(s) were acquired. COMPARISON: X-ray right knee 11/12/2021 FINDINGS: Bones: No fractures or dislocations. No suspicious bony lesions. There is bilateral moderate media l compartment narrowing, unchanged on the right since prior exam of 11/22/2021. No erosions. Very mini mal periarticular osteophytes. There is mild bilateral patellofemoral compartment narrowing. Soft tissues: Mild bilateral joint effusion. No suspicious soft tissue calcifications. IMPRESSION: Bilateral medial patellofemoral arthritic change most severe medially as above. Reviewed by: Angelica Jean Baptiste MD on 05/17/2022 5:09 PM PST Approved by: Angelica Jean Baptiste MD on 05/17/2022 5:09 PM PST Station ID: [id number]
== END 2022-05-17 15:22 | disposition home or self-care (01) ==
LOC: DI.WOS 15:21
PROVIDERS: ATTEND Physician Assistant Surgical
DX: M17.0 Bilateral primary osteoarthritis of knee (principal)

== ENCOUNTER 2022-11-14 10:57 | Outpatient (CLI) | payer MEDICARE ==
--- NOTE | 2022-11-15 09:19 | Ultrasound Report ---
PROCEDURE: Duplex Ext Veins Left INDICATIONS: PAIN IN LEFT LEG TECHNIQUE: Real-time imaging, as well as color and pulse Doppler interrogation, were performed of the lower extr emity deep veins from the inguinal ligament to the popliteal fossa. COMPARISON: None. FINDINGS: The deep veins are normally compressible, and free of intraluminal thrombus. Color and pu lse Doppler demonstrate normal phasic intraluminal flow. There is normal augmentation response to di stal compression maneuver. IMPRESSION: No DVT in the left lower extremity. Reviewed by: Marry Schuler MD on 11/15/2022 9:17 AM PDT Approved by: Marry Schuler MD on 11/15/2022 9:17 AM PDT Station ID: [id number]
== END 2022-11-14 10:58 | disposition home or self-care (01) ==
LOC: DI 10:57
PROVIDERS: ATTEND Student in an Organized Health Care Education/Training Program
DX: M79.605 Pain in left leg (principal)

== ENCOUNTER 2022-11-21 12:31 | Outpatient (CLI) | payer MEDICARE ==
--- NOTE | 2022-11-21 14:13 | XRAY Report ---
PROCEDURE: Hip w/Pelvis 2-3V RT INDICATIONS: R HIP PAIN TECHNIQUE: AP pelvis with lateral view(s) of the right hip(s). COMPARISON: CT abdomen and pelvis dated 07/05/2019 FINDINGS: Bones: No fractures or dislocations. No suspicious bony lesions. Degenerative changes of the bila teral hips. Stable appearance of mild sclerosis involving the right sacroiliac joint. Soft tissues: No suspicious soft tissue calcifications or masses. IMPRESSION: No acute bony abnormality. Right hip osteoarthrosis. Reviewed by: Adolfo Brennan MD on 11/21/2022 1:12 PM BHUPENDRA Approved by: Adolfo Brennan MD on 11/21/2022 1:12 PM BHUPENDRA Station ID: [id number]
== END 2022-11-21 12:32 | disposition home or self-care (01) ==
LOC: DI 12:31
PROVIDERS: ATTEND Student in an Organized Health Care Education/Training Program
DX: M16.11 Unilateral primary osteoarthritis, right hip (principal)